=== PATIENT | female | born 1995 | race Caucasian/White ===

== ENCOUNTER 2017-06-04 02:57 | Inpatient (IN) | payer OTHER, MEDICAID ==
--- NOTE | 2017-06-04 04:19 | HP ---
General Information - General Information Maternal Age: 21 Grav: 1 Para: 0 SAB: 0 IEA: 0 Estimated Due Date: 06/14/17 Determined By: LMP Gestational Age in Weeks and Days: 38 Weeks and 4 Days Maternal Blood Type and Rh: A Positive - Results this Serology/RPR Result: Non-Reactive Rubella Result: Immune HBsAg Result: Negative HIV Result: Negative GBS Culture Result: Negative Past Medical History Delivery History: See Records Pertinent Past Medical History: Non-Contributory Pertinent Past Surgical History: None Pertinent Family History: See Records - HTN, diabetes - Antepartal Records Antepartal Records: Reviewed, Complicated by: - Proteinuria 330 24 hour urine 06/02/17 Review of Systems Constitutional: Uncomfortable CV Complaint: No Respiratory: Shortness of Breath: No Gastrointestinal: No Nausea/Vomiting, Normal Bowel Movement Genitourinary: Leaking Fluid, No Dysuria, No Bleeding Musculoskeletal: Contractions Neurological: No Headache Movement: Normal - Comments Denies visual changes, RUQ pain Exam Allergies/Adverse Reactions: Allergies No Known Allergies Allergy (Verified 06/04/17 03:38) Initial BP on arrival 152/107. Repeats 143/102, 141/96 T 37.0 02 99 HR 88 Lab Values - Entire Visit: 330mg protein/24 hour urine 06/02/17 - Measurements Height: 5 ft Weight: 148 lb Weight in lbs: 148 Body Mass Index (BMI): 28.9 Pre- Weight: 117 lb Weight Gained This : 31 lbs and 0 ozs - Exam Abdomen: No Upper Quadrant Pain Breast: Breast Exam Deferred CVA: No CVA Tenderness Extremities: No Edema Heart: Normal Rhythm/Heart Sounds HEENT: No Significant Findings Lungs: Clear Bilaterally Rectal: Rectal Exam Deferred Reflexes: DTR 2+ - no clonus Thyroid: No Thyromegaly - Cervical Exam 3cm/100/0 - Abdominal Exam Abdomen Exam: Non-Tender - EFW 6.5-7lb EFM Findings - External Monitor Findings Baseline Heart Rate: 120 External Monitor Findings: Accelerations Present, No Pattern of Variable or Late Decelerations, Variability Moderate Contractions: Irregular, Moderate, < 45 Seconds Assessment/Plan - Reason for Visit Reason for Visit: Spontaneous rupture of membranes, IUP @ 38+4 weeks gestation in early labor, no evidence of metabolic acidemia - Obstetrical Risk Factors Obstetrical Risk Factors: Proteinuria, PreEclampsia - Plan Plan: Early Labor - Date/Time of Admission Date of Admission: 06/04/17 Time of Admission: 04:05
[2017-06-04] MEDS ORDERED: OBEPIDURAL* 250 ML EPIDURAL ONE (06:07)
[2017-06-04] MEDS ORDERED: Famotidine TAB* 20 MG PO PRN (06:34)
[2017-06-04] MEDS ORDERED: Sodium Citrate/Citric Acid* 15 ML UDC PO PRN (06:34)
[2017-06-04] MEDS ORDERED: Phenylephrine IV* 40 MCG/ML 10 ML SYRINGE IV PUSH PRN (06:34)
[2017-06-04] MEDS ORDERED: EPHEDrine (Pressors)* 50 MG/ML VIAL IV PUSH PRN (06:34)
[2017-06-04 06:37] LABS: Hematocrit 36 % (35-47); Hemoglobin 11.8 g/dl (12.0-16.0); Mean Corpuscular HGB Conc 33 g/dl (31-36); Mean Corpuscular Hemoglobin 27 pg (27-31); Mean Corpuscular Volume 81 fL (80-97); Mean Platelet Volume 11 um3 (7.4-10.4); Platelet Count 207 10^3/ul (150-450); Red Blood Count 4.44 10^6/ul (4.0-5.4); Red Cell Distribution Width 16 % (10.5-15); White Blood Count 20.8 10^3/ul (3.5-10.8)
[2017-06-04] MEDS ORDERED: OBEPIDURAL* 250 ML EPIDURAL SCH (07:00)
[2017-06-04 07:29] LABS: ABS Basophils 0.1 10^3/ul (0-0.2); ABS Eosinophils 0.1 10^3/ul (0-0.6); ABS Lymphocytes 3.9 10^3/ul (1.0-4.8); ABS Monocytes 1.3 10^3/ul (0-0.8); ABS Neutrophils 15.5 10^3/ul (1.5-7.7); ABS Nucleated RBC 0 10^3/ul; Eosinophil % 0.3 % (0-6); Lymphocyte % 18.5 % (25-47); Nucleated Red Blood Cells % 0.2
[2017-06-04] MEDS ORDERED: Dibucaine 1% 28.35 GM TUBE PR PRN (09:00)
[2017-06-04] MEDS ORDERED: Acetaminophen TAB* 325 MG PO PRN (09:00)
[2017-06-04] MEDS ORDERED: Witch Hazel PAD* JAR TOPICAL PRN (09:00)
[2017-06-04] MEDS ORDERED: Glycerin ADULT SUPP PR PRN (09:00)
[2017-06-04] MEDS: Ibuprofen TAB* 600 MG PO PRN ×2 (10:06→22:21)
[2017-06-04] MEDS: Docusate CAP* 100 MG PO SCH ×3 (12:16→22:21)
[2017-06-04] MEDS ORDERED: Simethicone TAB* 80 MG TAB.CHEW PO SCH (12:30)
[2017-06-05 06:33] LABS: Hematocrit 30 % (35-47); Hemoglobin 9.6 g/dl (12.0-16.0); Mean Corpuscular HGB Conc 33 g/dl (31-36); Mean Corpuscular Hemoglobin 27 pg (27-31); Mean Corpuscular Volume 82 fL (80-97); Mean Platelet Volume 10 um3 (7.4-10.4); Platelet Count 159 10^3/ul (150-450); Red Blood Count 3.62 10^6/ul (4.0-5.4); Red Cell Distribution Width 16 % (10.5-15); White Blood Count 21.3 10^3/ul (3.5-10.8)
[2017-06-05 07:24] LABS: ABS Basophils 0.1 10^3/ul (0-0.2); ABS Eosinophils 0.2 10^3/ul (0-0.6); ABS Lymphocytes 4.2 10^3/ul (1.0-4.8); ABS Monocytes 1.4 10^3/ul (0-0.8); ABS Neutrophils 15.6 10^3/ul (1.5-7.7); ABS Nucleated RBC 0 10^3/ul; Eosinophil % 0.8 % (0-6); Lymphocyte % 19.6 % (25-47); Nucleated Red Blood Cells % 0
[2017-06-05] MEDS: Ibuprofen TAB* 600 MG PO PRN ×2 (07:54→15:41)
[2017-06-05] MEDS: Ferrous Gluconate TAB* 324 MG TAB PO SCH ×2 (07:54→20:19)
[2017-06-05] MEDS: Docusate CAP* 100 MG PO SCH ×3 (07:54→20:19)
[2017-06-06] MEDS: Docusate CAP* 100 MG PO SCH (08:22)
[2017-06-06] MEDS: Ibuprofen TAB* 600 MG PO PRN (08:22)
[2017-06-06] MEDS: Ferrous Gluconate TAB* 324 MG TAB PO SCH (08:22)
[2017-06-06 08:59] VITALS: BP 114/59
== END 2017-06-06 13:46 | disposition home or self-care (01) | DRG 775 ==
LOC: MCHOBOUT 02:57 → MCHOB 04:05
PROVIDERS: ADMIT Midwife; ATTEND Midwife
PROC: 10E0XZZ Delivery of Products of Conception, External Approach (ICD-10-PCS; principal; 2017-06-04)
DX: O14.94 Unspecified pre-eclampsia, complicating childbirth (principal); D64.9 Anemia, unspecified; O90.81 Anemia of the puerperium; O42.02 Full-term premature rupture of membranes, onset of labor within 24 hours of rupture; Z3A.38 38 weeks gestation of pregnancy; Z37.0 Single live birth
CPT/HCPCS: 36415; 85025; 86850; 86900; 86901; A9270-GY

== ENCOUNTER 2018-04-13 07:45 | Inpatient (IN) | payer OTHER, MEDICAID ==
[2018-04-13] MEDS ORDERED: Lactated Ringers 1000 ML Bag* 1,000 ML IV ONE (08:01)
[2018-04-13] MEDS ORDERED: Dibucaine 1% 28.35 GM TUBE PR PRN (08:08)
[2018-04-13] MEDS ORDERED: Witch Hazel PAD* JAR TOPICAL PRN (08:08)
[2018-04-13] MEDS ORDERED: Glycerin ADULT SUPP PR PRN (08:08)
[2018-04-13] MEDS ORDERED: OXYTOCIN* 10 UNITS/ML 1 ML VIAL IM ONE (08:08)
--- NOTE | 2018-04-13 08:13 | HP ---
General Information - Reason for Visit Pt arrived in active labor with urge to push. - General Information Maternal Age: 21 Grav: 1 Para: 0 SAB: 0 IEA: 0 Estimated Due Date: 06/14/17 Determined By: LMP Maternal Blood Type and Rh: A Positive - Results this Serology/RPR Result: Non-Reactive Rubella Result: Immune HBsAg Result: Negative HIV Result: Negative GBS Culture Result: Negative Past Medical History Delivery History: Hx Uncomplicated Vaginal Delivery Pertinent Past Medical History: Non-Contributory Pertinent Past Surgical History: None Pertinent Family History: See Records - Hypertension - Antepartal Records Antepartal Records: Reviewed, Complicated by: - closely spaced pregnancies Review of Systems Constitutional: Uncomfortable CV Complaint: No Respiratory: Shortness of Breath: No Gastrointestinal: No Nausea/Vomiting Genitourinary: No Dysuria, No Bleeding, No Leaking Fluid Musculoskeletal: No Epigastric Pain, Contractions Neurological: No Headache, No Visual Changes Movement: Normal Exam Allergies/Adverse Reactions: Allergies No Known Allergies Allergy (Verified 06/04/17 03:38) Delivery imminent, vitals not taken on arrival - Measurements Height: 5 ft Weight: 65.317 kg Body Mass Index (BMI): 28.1 Pre- Weight: 58.967 kg - Exam Breast: Breast Exam Deferred CVA: No CVA Tenderness Extremities: No Edema Heart: Normal Rhythm/Heart Sounds HEENT: No Significant Findings Lungs: Clear Bilaterally Rectal: Rectal Exam Deferred Reflexes: DTR 2+ Thyroid: No Thyromegaly - Abdominal Exam Abdomen Exam: Non-Tender, Fundal Height Consistent with Dates - Ultrasound/Biophysical Profile Ultrasound Status: Not Done Targeted Exam Findings See L&D Outpatient Visit Provider Note for Findings: N/A Estimated Weight: 8# Cervical Exam: Complete Effacement: Complete Station: +3 Presenting Part: Vertex Membrane Status: Intact - Pt intact on arrival, ruptured as I entered the room Bleeding/Discharge: None EFM Findings - External Monitor Findings External Monitor Findings Comment: unable to obtain tracing as delivery imminent Contractions: Regular, Strong, 45-90 Seconds Assessment/Plan - Assessment Pt is a 22 year old at 37 3/7 weeks gestation, GBS negative, delivery imminent. - Plan Plan: Admit - Anticipate Vaginal Delivery - Date/Time of Admission Date of Admission: 04/13/18 Time of Admission: 07:52
--- NOTE | 2018-04-13 08:22 | PROCNOTE ---
[facility] OB: Delivery Note - Delivery A Date of : 04/13/18 Time of : 07:52 Marcus Sex: Male Score 1 Minute: 8 Score 5 Minutes: 9 Gestational Age in Weeks and Days at Delivery: 83 Weeks and 2 Days Delivery Method: Spontaneous Vaginal Labor: Spontaneous Did Patient attempt ?: N/A, No Previous Amniotic Fluid: Clear Estimated Blood Loss: 200 Anesthesia/Analgesia: None Delivered By: Jessi Barrios Nursery Level of Nursery: Regular/Bedside - Perineum Perineal Injury: None/Intact Perineal Repair: None - Events Delivery Events of Note: Pitocin Only After Delivery, Precipitous Delivery - Additional Delivery Notes Additional Delivery Notes: Pt called to report frequent uterine ctx and was counseled to proceed to Labor and Delivery. On arrival to unit pt experienced urge to push. Membranes then ruptured to clear fluid and pt began spontaneous bearing down efforts and quickly came to while standing at the side of the bed. With next push, head delivered, tight nuchal cord noted. Pt assisted onto bed, shoulders delivered with next push and cord reduced. placed on maternal abdomen, dried and stimulated. responded with vigorous cry, HR> 100. After cord pulsation ceased, cord clamped x2 and cut by 's father. Placenta soon delivered, spontaneous and fernando with trailing membranes, teased out with Cleo clamps. Fundus firm, oxytocin administered IM for prophylaxis. Bleeding minimal. Pt and stable at this time, anticipate normal course. Note: gestational age at delivery 37 3/7 weeks gestation. LELAND listed was from previous .
[2018-04-13] MEDS ORDERED: Simethicone TAB* 80 MG TAB.CHEW PO SCH (08:30)
[2018-04-13] MEDS ORDERED: Lactated Ringers 1000 ML Bag* 1,000 ML IV SCH ×2 (09:00)
[2018-04-13] MEDS: Docusate CAP* 100 MG PO SCH ×3 (09:00→21:19)
[2018-04-13] MEDS: Ibuprofen TAB* 600 MG PO PRN ×2 (13:51→21:19)
[2018-04-14] MEDS: Ibuprofen TAB* 600 MG PO PRN ×3 (05:29→23:26)
[2018-04-14 07:02] LABS: Hematocrit 30 % (35-47); Hemoglobin 9.4 g/dl (12.0-16.0); Mean Corpuscular HGB Conc 32 g/dl (31-36); Mean Corpuscular Hemoglobin 24 pg (27-31); Mean Corpuscular Volume 74 fL (80-97); Mean Platelet Volume 9.9 fL (7.4-10.4); Platelet Count 171 10^3/ul (150-450); Red Cell Distribution Width 18 % (10.5-15); White Blood Count 16.6 10^3/ul (3.5-10.8)
[2018-04-14 07:20] LABS: ABS Basophils 0.1 10^3/ul (0-0.2); ABS Eosinophils 0.2 10^3/ul (0-0.6); ABS Lymphocytes 2.7 10^3/ul (1.0-4.8); ABS Monocytes 0.9 10^3/ul (0-0.8); ABS Neutrophils 12.8 10^3/ul (1.5-7.7); ABS Nucleated RBC 0 10^3/ul; Eosinophil % 0.9 %; Lymphocyte % 16.5 %; Nucleated Red Blood Cells % 0.2
[2018-04-14] MEDS: Docusate CAP* 100 MG PO SCH ×3 (09:11→23:25)
[2018-04-14] MEDS: Ferrous Gluconate TAB* 324 MG TAB PO SCH ×2 (09:11→23:25)
[2018-04-14] MEDS: Acetaminophen TAB* 325 MG PO PRN (18:41)
[2018-04-15] MEDS: Ibuprofen TAB* 600 MG PO PRN (06:48)
[2018-04-15] MEDS: Ferrous Gluconate TAB* 324 MG TAB PO SCH (08:26)
[2018-04-15] MEDS: Docusate CAP* 100 MG PO SCH (08:26)
[2018-04-15] MEDS: Acetaminophen TAB* 325 MG PO PRN (08:26)
[2018-04-15 10:15] VITALS: BP 122/75
== END 2018-04-15 14:01 | disposition home or self-care (01) | DRG 807 ==
LOC: MCHOBOUT 07:45 → MCHOB 07:53
PROVIDERS: ADMIT Midwife; ATTEND Midwife
PROC: 10E0XZZ Delivery of Products of Conception, External Approach (ICD-10-PCS; principal; 2018-04-13)
PROC: 4A1HXCZ Monitoring of Products of Conception, Cardiac Rate, External Approach (ICD-10-PCS; 2018-04-13)
DX: O62.3 Precipitate labor (principal); Z37.0 Single live birth; Z3A.37 37 weeks gestation of pregnancy
CPT/HCPCS: 36415; 85025; A9270-GY; J2590